=== PATIENT | male | born 1960 | race Two or more races ===

== ENCOUNTER 2019-04-12 11:53 | Observation (INO) | payer BC, OTHER ==
--- NOTE | 2019-04-12 12:06 | PDOC ---
History of Present Illness - General Chief Complaint: Pain Stated Complaint: EPIGASTRIC PAIN Time Seen by Provider: 04/12/19 12:04 History Source: Patient Exam Limitations: No Limitations - History of Present Illness Initial Comments: 04/12/19 12:05 HPI 58-year-old male with history of hypertension, high cholesterol, CAD s/p PCI in 2005, history of appendectomy, renal colic/kidney stone who presents with epigastric discomfort this morning at approx 930AM, associated with nausea and NBNB emesis x 2-3 days, +dizziness and general weakness. he only drank coffee this morning, no food, and only mild epigastric discomfort. pt admits symptoms feel similar to prior [place] requiring stenting in 2005, where sx went more into chest. no radiation of symptoms, nonexertional. he also notes bilateral upper thigh/leg cramping, but denies pain or swellling or immobilization/surgeries. 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 Denies fever, chills, SOB, palpitation, dizziness, weakness, diarrhea or coonstipation, bladder and bowel problems, focal weakness/paresthesias, leg swelling/pain, rash. No sick contacts or travel. No new changes in medications. No suspicious food intake Allergies: None Past Medical History/PSH: as above Social history: Lives with family. No tobacco, ETOH or drug use. Meds: as documented in EMR PMD: [employer] Dr Bell in [place]. Review of systems Constitutional: no fevers or chills. No weakness HEENT: no headache or dizziness. No congestion. No visual/hearing disturbances. CVS: no syncope. no palpitations. Resp: no sob. No cough. Gastrointestinal: +epigastric pain, +nausea and +vomiting. no constipation or diarrhea. Genitourinary: no urinary sx, hematuria. MUSCULOSKELETAL: No joint pain and swelling. no calf pain. No neck or back pain. +leg cramping. +myalgias. SKIN: no redness or skin changes, no discharge, no rash. No wounds. Hematologic: no easy bruising/bleeding. NEUROLOGIC: No headache, dizziness, LOC or altered mental status. No weakness, numbness or tingling. Psych: no anxiety or depression Allergic/Immunologic: no allergies All other systems reviewed and negative, or as documented in HPI. Physical exam General: Well appearing, awake and alert, NAD. HEENT: NCAT, PERRL, EOMI, clear conjunctiva, anicteric, moist mucus membranes, clear oropharynx, no oral lesions.. Neck: neck supple, FROM Resp: CTAB, normal and even respirations, no respiratory distress CVS: RRR, no murmurs, 2+ peripheral pulses throughout, no peripheral edema Abdomen: soft, NTND, no rebound or guarding. Back: nontender, normal inspection and ROM MSK: no edema, PATTERSON x4, ROM intact. No clubbing or cyanosis. normal bulk and tone. Extremities: no calf tenderness Neuro: alert, oriented appropriately; no focal neurologic deficits Psych: Calm and cooperative Skin: warm and well perfused, cap refill <2 sec, normal color, no rash or skin discoloration. 04/12/19 12:36 04/12/19 14:54 04/12/19 17:44 Past History - Past Medical History Allergies/Adverse Reactions: Allergies Allergy/AdvReac Type Severity Reaction Status Date / Time No Known Allergies Allergy Verified 04/12/19 11:55 Home Medications: Ambulatory Orders Atorvastatin Ca [Lipitor] 20 mg PO HS 08/02/13 Metoprolol Succinate [Toprol XL -] 50 mg PO DAILY 08/02/13 [place]-3 Acid Ethyl Esters [Lovaza -] 1,000 mg PO BID 08/02/13 Ramipril 10 mg PO DAILY 08/02/13 Amlodipine Besylate 10 mg PO AM tablet 01/16/16 Cholecalciferol (Vitamin D3) [Vitamin D3] 5,000 unit PO DAILY tablet 03/09/16 Cardiac Disorders: Yes (CARDIAC STINT) Diabetes: Yes HTN: Yes Hypercholesterolemia: Yes - Surgical History Cardiac Surgery: Yes (CARDIAC STENT) - Psycho Social/Smoking Cessation Hx Smoking Status: No Smoking History: Never smoked Number of Cigarettes Smoked Daily: 0 Cigars Per Day: 0 Hx Alcohol Use: No Drug/Substance Use Hx: No Substance Use Type: None Hx Substance Use Treatment: No Heart Score/ECG Review - History History: Slightly suspicious - Electrocardiogram EKG: Normal - Age Age: 45-65 - Risk Factors Risk Factors Heart Score: Yes Hx Hypercholesterolemia, Yes Hx Hypertension, Yes Hx Obesity Based on the list above the patient has:: >/=3 risk factors or Hx atherosclerotic disease - Troponin Troponin: </= normal limit - Score Heart Score - Total: 3 #1 ECG reviewed & interpreted by me at: 12:05 General ECG Interpretation: Sinus Rhythm, Normal Rate, Normal Intervals Compared to previous ECG there are: Changes noted 04/12/19 12:40 EKG normal sinus rhythm at 68 bpm, no interval abnormalities, narrow QRS, ST and T wave segments and morphology normal. Nonspecific T wave abnormality / fattening in III only, changed from prior 04/12/19 12:41 ED Treatment Course - LABORATORY CBC & Chemistry Diagram: 04/12/19 13:00 04/12/19 13:00 - RADIOLOGY Chest X-Ray Result: No Infiltrates Radiograph Interpretation: 04/12/19 14:55 Interpreted by ED Physician: CXR (2 view): no acute abnormality: no infiltrates , bones appear intact and structures normal alignment, trachea midline. no free air under diaphragm, no pneumothorax. mild cardiomegaly, low lung volumes, poor inspiratory effort 04/12/19 14:55 Medical Decision Making - Medical Decision Making 04/12/19 12:39 Vital Signs Temp Pulse Resp BP Pulse Ox 98 F 74 16 150/89 98 04/12/19 11:54 04/12/19 11:54 04/12/19 11:54 04/12/19 11:54 04/12/19 12:10 DDx chest pain: ACS, coronary vasospasm, NSTEMI, arrhythmia, unstable angina, PE , dissection, PUD, esophageal spasm, GERD, gastritis, costochondritis, pneumonia , pleurisy, pericarditis/myocarditis. dehydration, electrolyte/metabolic derangements. Considered but clinically doubt based on HPI and PE: Low suspicion for pulmonary embolism, DVT or dissection. Vitals reviewed, mildly hypertensive, no tachycardia, normal sats. EKG normal sinus rhythm at 68 bpm, no interval abnormalities, narrow QRS, ST and T wave segments and morphology normal. Nonspecific T wave abnormality / fattening in III only, changed from prior Patient is on statin so this could be a myositis with elevated CK levels, normal LFTs. Negative troponin which is specific for myocardium which is negative so this is reassuring but will still need trending of troponins and rule out for atypical chest pain/ACS given history of CAD requiring PCI and anginal equivalent per the patient. no sx to suggest DVT/PE, b/l leg and muscle pain, no calf or tenderness elicited along deep venous system. Chest pain HEART score 3 which denotes Low risk and probability for ACS, less than 1% risk for MACE at 4-6 wks however history of prior WI requiring PCI/atypical cp sx Plan for admit observation, r/o ischemia, serial trops and EKG/tele monitoring. ASA taken TURNING LATHE TENDER, pain controlled, discussion with patient and family at bedside, made aware of impression and plan, questions answered. 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
[2019-04-12 13:15] LABS: BASO % 0.5 % (0-2.0); EOS % 2.1 % (0-4.5); HEMATOCRIT 45.6 % (35.4-49); HEMOGLOBIN 15.4 GM/dl (11.7-16.9); LYMPH % 20.8 % (8-40); MCH 28.9 pg (25.7-33.7); MCHC 33.7 g/dl (32.0-35.9); MEAN CELL VOLUME 85.7 fl (80-96); MONO % 8.5 % (3.8-10.2); NEUT % 68.1 % (42.8-82.8); PLATELET COUNT 188 K/MM3 (134-434); RBC 5.32 M/mm3 (4.00-5.60); RDW 12.7 % (11.9-15.9); WHITE BLOOD COUNT 6.2 K/mm3 (4.0-10.8)
[2019-04-12 13:24] LABS: ALBUMIN 4.1 g/dl (3.4-5.0); BILIRUBIN,TOTAL 0.8 mg/dl (0.2-1); CALCIUM 8.9 mg/dl (8.5-10); CREATININE 0.9 mg/dl (0.55-1.3); POTASSIUM 3.9 mmol/L (3.5-5.1); TOT PROT 7.1 g/dl (6.4-8.2)
--- NOTE | 2019-04-12 15:38 | HP ---
CHIEF COMPLAINT: Epigastric discomfort PCP: Dr. Franco Reporting Specialist: Dr Bell in [place]. HISTORY OF PRESENT ILLNESS: 58 year-old male with a PMH significant for HTN, HLD, CAD s/p stent x 1. and kidney stones. Presented to the ED today for evaluation of epigastric discomfort this morning associated with nausea and NBNB emesis x 2-3 days, + dizziness and general weakness. Patient also reported low back pain, bilateral thigh cramps, and lower abdominal cramps. Patient became concerned as these symptoms were similar to those he experienced prior to his PCI in 2005 so he came to the ED. He denies chest pain, palpitations, SOB, SHRESTHA, lower extremity edema. He denies fever, sweats, chills, diarrhea. Denies dysuria, frequency, urgency. 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[employer]; lives with family Smoking:no Alcohol: no Drugs: no Family history: non-contributory Allergies No Known Allergies Allergy (Verified 04/12/19 11:55) HOME MEDICATIONS: Home Medications Medication Instructions Recorded Atorvastatin Ca [Lipitor] 20 mg PO HS 08/02/13 Metoprolol Succinate [Toprol XL -] 50 mg PO DAILY 08/02/13 [place]-3 Acid Ethyl Esters [Lovaza 1,000 mg PO BID 08/02/13 -] Ramipril 10 mg PO DAILY 08/02/13 Amlodipine Besylate 10 mg PO AM tablet 01/16/16 Cholecalciferol (Vitamin D3) 5,000 unit PO DAILY tablet 03/09/16 [Vitamin D3] REVIEW OF SYSTEMS CONSTITUTIONAL: Absent: fever, chills, diaphoresis, generalized weakness, malaise, loss of appetite, weight change HEENT: Absent: rhinorrhea, nasal congestion, throat pain, throat swelling, difficulty swallowing, mouth swelling, ear pain, eye pain, visual changes CARDIOVASCULAR: Absent: chest pain, syncope, palpitations, irregular heart rate, lightheadedness , peripheral edema RESPIRATORY: Absent: cough, shortness of breath, dyspnea with exertion, orthopnea, wheezing, stridor, hemoptysis GASTROINTESTINAL: +epigastric discomfort, abdominal cramping, nausea, vomiting Absent: abdominal distension, Absent: dysuria, frequency, urgency, hesitancy, hematuria, flank pain, genital pain MUSCULOSKELETAL: +bilateral thigh cramps Absent: myalgia, arthralgia, joint swelling, back pain, neck pain SKIN: Absent: rash, itching, pallor HEMATOLOGIC/IMMUNOLOGIC: Absent: easy bleeding, easy bruising, lymphadenopathy, frequent infections ENDOCRINE: Absent: unexplained weight gain, unexplained weight loss, heat intolerance, cold intolerance NEUROLOGIC: Absent: headache, focal weakness or paresthesias, dizziness, unsteady gait, seizure, mental status changes, bladder or bowel incontinence PSYCHIATRIC: Absent: anxiety, depression, suicidal or homicidal ideation, hallucinations. PHYSICAL EXAMINATION Vital Signs - 24 hr 04/12/19 04/12/19 04/12/19 11:54 12:10 13:27 Temperature 98 F Pulse Rate 74 Pulse Rate [ 65 Apical] Respiratory 16 16 Rate Blood Pressure 150/89 Blood Pressure 149/103 H [Right Arm] O2 Sat by Pulse 95 98 97 Oximetry (%) 04/12/19 04/12/19 14:20 15:23 Temperature Pulse Rate Pulse Rate [ 64 Apical] Respiratory 16 Rate Blood Pressure Blood Pressure 116/66 132/82 [Right Arm] O2 Sat by Pulse 98 Oximetry (%) GENERAL: Awake, alert, and fully oriented, in no acute distress. HEAD: Normal with no signs of trauma. EYES: Pupils equal, round and reactive to light, extraocular movements intact, sclera anicteric, conjunctiva clear. LUNGS: Breath sounds equal, clear to auscultation bilaterally. No wheezes, and no crackles. No accessory muscle use. HEART: Regular rate and rhythm, normal S1 and S2 ABDOMEN: Soft, nontender, not distended. MUSCULOSKELETAL: Normal range of motion at all joints. No bony deformities or tenderness. No CVA tenderness. UPPER EXTREMITIES: 2+ pulses, warm, well-perfused. No cyanosis. No clubbing. No peripheral edema. LOWER EXTREMITIES: 2+ pulses, warm, well-perfused. No calf tenderness. No peripheral edema. NEUROLOGICAL: Cranial nerves II-XII intact. Normal speech. Laboratory Results - last 24 hr 04/12/19 04/12/19 04/12/19 13:00 13:00 13:00 WBC 6.2 RBC 5.32 Hgb 15.4 Hct 45.6 MCV 85.7 MCH 28.9 MCHC 33.7 RDW 12.7 Plt Count 188 MPV 8.0 Absolute Neuts (auto) 4.3 Neutrophils % 68.1 Lymphocytes % 20.8 D Monocytes % 8.5 Eosinophils % 2.1 Basophils % 0.5 Sodium 132 L Potassium 3.9 Chloride 100 Carbon Dioxide 28 Anion Gap 4 L BUN 11.0 Creatinine 0.9 Est GFR (CKD-EPI)AfAm 107.97 Est GFR (CKD-EPI)NonAf 93.16 Random Glucose 136 H Calcium 8.9 Total Bilirubin 0.8 AST 32 ALT 40 Alkaline Phosphatase 45 Creatine Kinase 1723 H Creatine Kinase Index 0.1 CK-MB (CK-2) 2.3 Troponin I < 0.03 Total Protein 7.1 Albumin 4.1 Lipase 04/12/19 13:00 WBC RBC Hgb Hct MCV MCH MCHC RDW Plt Count MPV Absolute Neuts (auto) Neutrophils % Lymphocytes % Monocytes % Eosinophils % Basophils % Sodium Potassium Chloride Carbon Dioxide Anion Gap BUN Creatinine Est GFR (CKD-EPI)AfAm Est GFR (CKD-EPI)NonAf Random Glucose Calcium Total Bilirubin AST ALT Alkaline Phosphatase Creatine Kinase Creatine Kinase Index CK-MB (CK-2) Troponin I Total Protein Albumin Lipase 157 ASSESSMENT/PLAN 58 year-old male with a PMH significant for HTN, HLD, CAD s/p stent x 1, and kidney stones. Placed on observation for epigastric pain. Epigastric discomfort Coronary artery disease --troponin neg x 2, third pending --ECG: no ischemic changes --CXR unremarkable --echo in am --stress in am; hold beta [place] --telemetry monitoring --cardiology following Hypertension --continue ramipril, amlodipine Hyperlipidemia --continue Lipitor Kidney stones --stable, no acute issues FEN Fluids: PO intake adequate Electrolytes: replete as indicated Nutrition: NPO after midnight for stress tomorrow DVT prophylaxis: subq lovenox Dispo: continues to require observation. Full code. Visit type - Emergency Visit Emergency Visit: Yes ED Registration Date: 04/12/19 Care time: The patient presented to the Emergency Department on the above date and was hospitalized for further evaluation of their emergent condition. - New Patient This patient is new to me today: Yes Date on this admission: 04/13/19 - Critical Care Critical Care patient: No
--- NOTE | 2019-04-12 16:43 | CON.CARD ---
Cardiology Consult (text) - Consultation Consultation Note: cc: epigastric pain hpi: 58 m hx htn, hld, cad s/p pci 2005, here with epigastric pain. This AM had epigastric achey pain with some n/v and dizziness. No cp sob palps loc pnd orthopnea le edema. Sxs improved later in AM. Came to ER for eval, feeling well now. Sees development vice president in [place], no recent stress testing. pmh: per hpi psh: appendectomy social: no tob fam: no premature cad, scd ros: per hpi; all others nl meds: Ambulatory Orders Atorvastatin Ca [Lipitor] 20 mg PO HS 08/02/13 Metoprolol Succinate [Toprol XL -] 50 mg PO DAILY 08/02/13 [place]-3 Acid Ethyl Esters [Lovaza -] 1,000 mg PO BID 08/02/13 Ramipril 10 mg PO DAILY 08/02/13 Amlodipine Besylate 10 mg PO AM tablet 01/16/16 Cholecalciferol (Vitamin D3) [Vitamin D3] 5,000 unit PO DAILY tablet 03/09/16 pe: Vital Signs Period Temp Pulse Resp BP Sys/Rider Pulse Ox Last 24 Hr 98 F 64-74 16-16 116-150/66-103 95-98 nad no jvd rrr s1s2 no mrg cta bl nl eff aao3 no le e/c/c abd nt nd pos bs no jaundice diaphoresis pos dp pt no carotid bruits Laboratory Last Values WBC 6.2 K/mm3 (4.0-10.8) 04/12/19 13:00 RBC 5.32 M/mm3 (4.00-5.60) 04/12/19 13:00 Hgb 15.4 GM/dl (11.7-16.9) 04/12/19 13:00 Hct 45.6 % (35.4-49) 04/12/19 13:00 MCV 85.7 fl (80-96) 04/12/19 13:00 MCH 28.9 pg (25.7-33.7) 04/12/19 13:00 MCHC 33.7 g/dl (32.0-35.9) 04/12/19 13:00 RDW 12.7 % (11.9-15.9) 04/12/19 13:00 Plt Count 188 K/MM3 (134-434) 04/12/19 13:00 MPV 8.0 fl (7.5-11.1) 04/12/19 13:00 Absolute Neuts (auto) 4.3 K/mm3 04/12/19 13:00 Neutrophils % 68.1 % (42.8-82.8) 04/12/19 13:00 Lymphocytes % 20.8 % (8-40) D 04/12/19 13:00 Monocytes % 8.5 % (3.8-10.2) 04/12/19 13:00 Eosinophils % 2.1 % (0-4.5) 04/12/19 13:00 Basophils % 0.5 % (0-2.0) 04/12/19 13:00 Sodium 132 mmol/L (136-145) L 04/12/19 13:00 Potassium 3.9 mmol/L (3.5-5.1) 04/12/19 13:00 Chloride 100 mmol/L (98-107) 04/12/19 13:00 Carbon Dioxide 28 mmol/L (21-32) 04/12/19 13:00 Anion Gap 4 MMOL/L (8-16) L 04/12/19 13:00 BUN 11.0 mg/dl (7-18) 04/12/19 13:00 Creatinine 0.9 mg/dl (0.55-1.3) 04/12/19 13:00 Est GFR (CKD-EPI)AfAm 107.97 04/12/19 13:00 Est GFR (CKD-EPI)NonAf 93.16 04/12/19 13:00 Random Glucose 136 mg/dl (74-106) H 04/12/19 13:00 Calcium 8.9 mg/dl (8.5-10) 04/12/19 13:00 Total Bilirubin 0.8 mg/dl (0.2-1) 04/12/19 13:00 AST 32 U/L (15-37) 04/12/19 13:00 ALT 40 U/L (13-61) 04/12/19 13:00 Alkaline Phosphatase 45 U/L (45-117) 04/12/19 13:00 Creatine Kinase 1723 U/L (26-308) H 04/12/19 13:00 Creatine Kinase Index 0.1 % (0.0-5.0) 04/12/19 13:00 CK-MB (CK-2) 2.3 ng/mL (0.5-3.6) 04/12/19 13:00 Troponin I < 0.03 ng/ml (0.00-0.05) 04/12/19 13:00 Total Protein 7.1 g/dl (6.4-8.2) 04/12/19 13:00 Albumin 4.1 g/dl (3.4-5.0) 04/12/19 13:00 Lipase 157 U/L (73-393) 04/12/19 13:00 ecg: sr nl intervals no ischemic changes tele: sr a/p: 58 m hx htn, hld, cad s/p pci 2005, here with epigastric pain. epigastric pain: -does not seem like acs but given his cad hx and prior atypical sxs when he had pci, will eval further with nuclear stress test (if second trop is neg) and echo. -cont tele cad: -as above -cont statin, albert, asa -hold bb for now (stress test tomorrow) hld: -cont statin htn: -stable, cont home meds
[2019-04-12 17:23] VITALS: BMI 32.4
[2019-04-13] MEDS ORDERED: amLODIPine BESYLATE 10 MG TABLET (FP) PO SCH (07:00)
[2019-04-13 08:18] LABS: BASO % 0.4 % (0-2.0); EOS % 2.5 % (0-4.5); HEMATOCRIT 45.1 % (35.4-49); HEMOGLOBIN 15.4 GM/dl (11.7-16.9); LYMPH % 22.4 % (8-40); MCH 29.5 pg (25.7-33.7); MCHC 34.1 g/dl (32.0-35.9); MEAN CELL VOLUME 86.5 fl (80-96); MEAN PLT VOLUME 8.4 fl (7.5-11.1); MONO % 7.7 % (3.8-10.2); PLATELET COUNT 190 K/MM3 (134-434); RBC 5.22 M/mm3 (4.00-5.60); RDW 12.8 % (11.9-15.9); WHITE BLOOD COUNT 7.1 K/mm3 (4.0-10.8)
[2019-04-13 08:21] LABS: ACTIVATED PTT 28.8 SECONDS (25.2-36.5)
[2019-04-13 08:22] LABS: ALBUMIN 3.7 g/dl (3.4-5.0); BILIRUBIN,TOTAL 0.9 mg/dl (0.2-1); CALCIUM 9.2 mg/dl (8.5-10); CREATININE 0.8 mg/dl (0.55-1.3); POTASSIUM 4.1 mmol/L (3.5-5.1); TOT PROT 6.8 g/dl (6.4-8.2)
[2019-04-13 08:26] LABS: INR 1.16 (0.82-1.09); PROTHROMBIN TIME (PATIENT) 12.9 SEC (10.2-13.0)
[2019-04-13] MEDS ORDERED: PANTOPRAZOLE 40 MG TABLET (FP) PO SCH (10:00)
[2019-04-13] MEDS ORDERED: REGADENOSON 0.4 MG/5 ML PRE-FILLED SYRINGE IVPUSH ONE (10:00)
[2019-04-13] MEDS ORDERED: ASPIRIN 81 MG CHEWABLE TABLETS PO SCH (10:00)
[2019-04-13] MEDS ORDERED: ENOXAPARIN NA (PORCINE) 40 MG/0.4 ML DISP.SYRIN SQ SCH (10:00)
[2019-04-13] MEDS ORDERED: RAMIPRIL 5 MG CAPSULE (FP) PO SCH (10:00)
--- NOTE | 2019-04-13 11:17 | PN ---
Progress Note (short form) - Note Progress Note: s: no cp sob palps dizzy; abd pain better Current Medications Generic Name Dose Route Start Last Admin Trade Name Preeti PRN Reason Stop Dose Admin Amlodipine Besylate 10 mg 04/13/19 07:00 04/13/19 06:28 Norvasc - PO 10 mg AM ARIES Administration Aspirin 81 mg 04/13/19 10:00 Asa - PO DAILY ARIES Atorvastatin Calcium 20 mg 04/13/19 22:00 Lipitor - PO HS ARIES Enoxaparin Sodium 40 mg 04/13/19 10:00 Lovenox - SQ DAILY ARIES Pantoprazole Sodium 40 mg 04/13/19 10:00 Protonix - PO DAILY ARIES Ramipril 10 mg 04/13/19 10:00 Altace - PO DAILY ARIES Vital Signs Period Temp Pulse Resp BP Sys/Rider Pulse Ox Last 24 Hr 97.9 F-98.9 F 60-74 16-18 95-150/45-103 95-98 nad no jvd rrr s1s2 no mrg cta bl nl eff aao3 no le e/c/c abd nt nd pos bs no jaundice diaphoresis CBC, BMP 04/13/19 07:20 04/13/19 07:20 ecg: sr nl intervals no ischemic changes a/p: 58 m hx htn, hld, cad s/p pci 2005, here with epigastric pain. epigastric pain: -ce's negativex3 -does not seem like acs but given his cad hx and prior atypical sxs when he had pci, will eval further with nuclear stress test (if second trop is neg) and echo. cad: -as above -cont statin, albert, asa, bb hld: -cont statin htn: -stable, cont home meds if echo and stress test unremarkable then ok for dc today from cardiac pov
--- NOTE | 2019-04-13 12:52 | ECHO ---
Name: TRUONG NORTON Exam:Adult Echocardiogram Study Date: 04/13/2019 12:00 PM Age: 58 yrs Height: 66 in Weight: 201 lb BSA: 2.0 m2 MMode/2D Measurements & Calculations IVSd: 0.89 cm Ao root diam: 3.6 cm LVIDd: 5.0 cm LA dimension: 3.4 cm LVIDs: 3.6 cm ACS: 1.9 cm LVPWd: 1.0 cm IVSs: 1.1 cm LVPWs: 1.2 cm EDV(Teich): 119.0 ml ESV(Teich): 53.8 ml Doppler Measurements & Calculations MV E max anjelica: 57.8 cm/sec Ao V2 max: 79.9 cm/sec MV A max anjelica: 60.5 cm/sec Ao max P.6 mmHg MV E/A: 0.96 Ao V2 mean: 65.3 cm/sec Ao mean P.8 mmHg Ao V2 VTI: 17.2 cm Procedure A two-dimensional transthoracic echocardiogram with color flow and Doppler was performed. Left Ventricle The left ventricular size, thickness and function are normal. The left ventricular ejection fraction is normal. Ejection Fraction = 55-60%. No regional wall motion abnormalities noted. Right Ventricle The right ventricle is normal in size and function. Atria Normal left and right atrial size and function. Mitral Valve There is no mitral regurgitation noted. Tricuspid Valve There is trace tricuspid regurgitation. There was insufficient TR detected to calculate RV systolic p ressure. Aortic Valve No hemodynamically significant valvular aortic stenosis. No aortic regurgitation is present. Pulmonic Valve There is no pulmonic valvular regurgitation. Great Vessels The aortic root is normal size. Pericardium/Pleura There is no pericardial effusion. Interpretation Summary The left ventricular size, thickness and function are normal The right ventricle is normal in size and function. There is trace tricuspid regurgitation. MD Simón Helton 04/13/2019 12:52 PM
--- NOTE | 2019-04-13 14:46 | EKG ---
Test Reason : Blood Pressure : / mmHG Vent. Rate : 055 BPM Atrial Rate : 055 BPM P-R Int : 202 ms QRS Dur : 102 ms QT Int : 432 ms P-R-T Axes : 036 035 043 degrees QTc Int : 413 ms SINUS BRADYCARDIA OTHERWISE NORMAL ECG WHEN COMPARED WITH ECG OF 12-APR-2019 12:04, NO SIGNIFICANT CHANGE WAS FOUND Confirmed by PATRICA WOODS MD ([id number]) on 04/13/2019 2:45:34 PM Referred By: DR PEDROZA Confirmed By:PATRICA WOODS MD
--- NOTE | 2019-04-13 14:46 | EKG ---
Test Reason : Blood Pressure : / mmHG Vent. Rate : 068 BPM Atrial Rate : 068 BPM P-R Int : 188 ms QRS Dur : 108 ms QT Int : 402 ms P-R-T Axes : 049 017 027 degrees QTc Int : 427 ms NORMAL SINUS RHYTHM NORMAL ECG NO PREVIOUS ECGS AVAILABLE Confirmed by PATRICA WOODS MD ([id number]) on 04/13/2019 2:45:37 PM Referred By: DELONTE LAO Confirmed By:PATRICA WOODS MD
[2019-04-13 14:49] VITALS: BP 125/76; PULSE 75; TEMP 98.1
--- NOTE | 2019-04-13 14:49 | DS ---
Physical Exam: SUBJECTIVE: Patient seen and examined. Denies chest pain, palpitations, SOB. OBJECTIVE: Vital Signs Period Temp Pulse Resp BP Sys/Rider Pulse Ox Last 24 Hr 97.9 F-98.9 F 60-75 16-20 95-132/45-82 95-98 PHYSICAL EXAM GENERAL: The patient is awake, alert, and fully oriented, in no acute distress. HEAD: Normal with no signs of trauma. EYES: PERRL, extraocular movements intact, sclera anicteric, conjunctiva clear. ENT: Ears normal, nares patent, oropharynx clear without exudates, moist mucous membranes. NECK: Trachea midline, full range of motion, supple. LUNGS: Breath sounds equal, clear to auscultation bilaterally, no wheezes, no crackles, no accessory muscle use. HEART: Regular rate and rhythm, S1, S2 without murmur, rub or gallop. ABDOMEN: Soft, nontender, nondistended, normoactive bowel sounds, no guarding, no rebound, no hepatosplenomegaly, no masses. EXTREMITIES: 2+ pulses, warm, well-perfused, no edema. NEUROLOGICAL: Cranial nerves II through XII grossly intact. Normal speech, gait not observed. PSYCH: Normal mood, normal affect. SKIN: Warm, dry, normal turgor, no rashes or lesions noted. LABS Laboratory Results - last 24 hr 04/12/19 04/12/19 04/13/19 13:00 18:47 00:30 WBC RBC Hgb Hct MCV MCH MCHC RDW Plt Count MPV Absolute Neuts (auto) Neutrophils % Lymphocytes % Monocytes % Eosinophils % Basophils % PT with INR INR PTT (Actin FS) Sodium Potassium Chloride Carbon Dioxide Anion Gap BUN Creatinine Est GFR (CKD-EPI)AfAm Est GFR (CKD-EPI)NonAf Random Glucose Calcium Magnesium Total Bilirubin AST ALT Alkaline Phosphatase Creatine Kinase 1131 H Creatine Kinase Index 0.1 CK-MB (CK-2) 1.2 Troponin I < 0.03 0.02 Total Protein Albumin Lipase 157 04/13/19 04/13/19 04/13/19 07:20 07:20 07:20 WBC 7.1 RBC 5.22 Hgb 15.4 Hct 45.1 MCV 86.5 MCH 29.5 MCHC 34.1 RDW 12.8 Plt Count 190 MPV 8.4 Absolute Neuts (auto) 4.8 Neutrophils % 67.0 Lymphocytes % 22.4 Monocytes % 7.7 Eosinophils % 2.5 Basophils % 0.4 PT with INR 12.9 INR 1.16 PTT (Actin FS) 28.8 Sodium 136 Potassium 4.1 Chloride 103 Carbon Dioxide 24 Anion Gap 9 BUN 11.0 Creatinine 0.8 Est GFR (CKD-EPI)AfAm 113.33 Est GFR (CKD-EPI)NonAf 97.78 Random Glucose 139 H Calcium 9.2 Magnesium 2.0 Total Bilirubin 0.9 AST 26 ALT 36 Alkaline Phosphatase 43 L Creatine Kinase Creatine Kinase Index CK-MB (CK-2) Troponin I Total Protein 6.8 Albumin 3.7 Lipase HOSPITAL COURSE: Date of Admission:04/12/19 Date of Discharge: 04/13/19 Pre hospital course 58 year-old male with a PMH significant for HTN, HLD, CAD s/p stent x 1. and kidney stones. Presented to the ED today for evaluation of epigastric discomfort this morning associated with nausea and NBNB emesis x 2-3 days, + dizziness and general weakness. Patient also reported low back pain, bilateral thigh cramps, and lower abdominal cramps. Patient became concerned as these symptoms were similar to those he experienced prior to his PCI in 2005 so he came to the ED. He denies chest pain, palpitations, SOB, SHRESTHA, lower extremity edema. He denies fever, sweats, chills, diarrhea. Denies dysuria, frequency, urgency. ER course (1) Troponin neg x 2 Subsequent hospital course 58 year-old male with a PMH significant for HTN, HLD, CAD s/p stent x 1, and kidney stones. Placed on observation for epigastric pain. Epigastric discomfort Coronary artery disease --troponin neg x 3, third pending --ECG: no ischemic changes --CXR unremarkable --echo: LV normal, EF 55%; RV normal; trace TR --Nuclear stress: small size, mild intensity, reversible defect of inferior wall from base to mid ventricle c/w ischemia; EF 61% --seen and evaluated by cardiology: stress test results are a low-risk finding, patient had excellent exercise tolerance on treadmill portion of test without anginal symptoms; continue medical management of CAD, follow up with outpatient collections officer in 1-2 weeks Hypertension --continued ramipril, amlodipine Hyperlipidemia --continued Lipitor Kidney stones --stable, no acute issues Minutes to complete discharge: 35 Discharge Summary Problems reviewed: Yes Reason For Visit: EPIGASTRIC PAIN Current Active Problems Chest pain, atypical (Acute) Elevated CK (Acute) Condition: Improved - Instructions Diet, Activity, Other Instructions: It is recommended you follow up with your collections officer, Dr. Bell, within 1 to 2 weeks of your discharge. Referrals: Juan Franco MD [Primary Care Provider] - Disposition: HOME - Home Medications Comprehensive Discharge Medication List: Ambulatory Orders Atorvastatin Ca [Lipitor] 20 mg PO HS 08/02/13 Metoprolol Succinate [Toprol XL -] 50 mg PO DAILY 08/02/13 [place]-3 Acid Ethyl Esters [Lovaza -] 1,000 mg PO BID 08/02/13 Ramipril 10 mg PO DAILY 08/02/13 Amlodipine Besylate 10 mg PO AM tablet 01/16/16 Cholecalciferol (Vitamin D3) [Vitamin D3] 5,000 unit PO DAILY tablet 03/09/16 This patient is new to me today: No Emergency Visit: Yes ED Registration Date: 04/12/19 Care time: The patient presented to the Emergency Department on the above date and was hospitalized for further evaluation of their emergent condition. Critical Care patient: No - Discharge Referral Referred to [facility] No
[2019-04-13] MEDS ORDERED: ATORVASTATIN CA 20 MG TABLET (FP) PO SCH (22:00)
== END 2019-04-13 15:14 | disposition home or self-care (01) ==
LOC: FER 11:53 → FM/S 15:30
PROVIDERS: ADMIT Internal Medicine; ATTEND Nurse Practitioner Acute Care
DX: R07.9 Chest pain, unspecified (principal); R74.8 Abnormal levels of other serum enzymes; I25.10 Atherosclerotic heart disease of native coronary artery without angina pectoris; I10 Essential (primary) hypertension; Z95.5 Presence of coronary angioplasty implant and graft; E78.5 Hyperlipidemia, unspecified; E78.00 Pure hypercholesterolemia, unspecified; R25.2 Cramp and spasm; E66.9 Obesity, unspecified; Z68.32 Body mass index [BMI] 32.0-32.9, adult; Z90.49 Acquired absence of other specified parts of digestive tract; Z87.442 Personal history of urinary calculi
CPT/HCPCS: 36415; 71045-TC-FY; 78452-TC; 80053; 82550; 82553; 83690; 83735; 84484; 85025; 85610; 85730; 93005; 93017; 93306-TC; 99285-25; A9502; G0378; J1245

== ENCOUNTER 2021-06-06 16:14 | Emergency (ER) | payer BC, OTHER ==
[2021-06-06 16:23] VITALS: PULSE 71; BMI 32.4
[2021-06-06 16:35] VITALS: BP 127/60; TEMP 98.3
[2021-06-06] MEDS ORDERED: KETOROLAC TROMETHAMINE 30 MG/1 ML VIAL IM ONE (16:36)
[2021-06-06] MEDS ORDERED: KETOROLAC TROMETHAMINE 30 MG/1 ML VIAL ONE (16:38)
== END 2021-06-06 18:00 | disposition home or self-care (01) ==
LOC: FER 16:14
PROC: 3E0233Z Introduction of Anti-inflammatory into Muscle, Percutaneous Approach (ICD-10-PCS; principal; 2021-06-06)
DX: M25.532 Pain in left wrist (principal); M54.9 Dorsalgia, unspecified; W10.9XXA Fall (on) (from) unspecified stairs and steps, initial encounter; Y92.9 Unspecified place or not applicable
CPT/HCPCS: 71046-TC-FY; 73110-TC-LT-FY; 99284-25

== ENCOUNTER 2021-12-22 14:13 | Emergency (ER) | payer OTHER ==
[2021-12-22 14:26] VITALS: BP 136/83; PULSE 78; RESP 16; TEMP 98.9; BMI 32.3
[2021-12-22] MEDS ORDERED: diphenhydrAMINE HCL 25 MG CAPSULE (FP) PO ONE ×2 (14:31→14:37)
== END 2021-12-22 14:41 | disposition home or self-care (01) ==
LOC: FER 14:13
DX: T63.441A Toxic effect of venom of bees, accidental (unintentional), initial encounter (principal)
CPT/HCPCS: 99283-25